=== PATIENT | female | born 1950 | race African-American/Black ===

== ENCOUNTER 2022-09-12 02:54 | Emergency (ER) | payer OTHER ==
[~2022-09-12] VITALS: Ht 165.1 cm; Wt 90.0 kg
[2022-09-12] MEDS ORDERED: MORPHINE SULFATE 4 MG/ML CPJ (NOT FOR IM USE) IV STA (04:08)
[2022-09-12] MEDS ORDERED: SODIUM CHLORIDE 0.9% 1,000 ML IV ONE (04:15)
[2022-09-12] MEDS ORDERED: DIATR MEGLU/DIATRIZOATE SOLN 30ML ONE (04:45)
[2022-09-12 05:05] LABS: BASOPHILS % 0.3 % (0.0-2.0); EOSINOPHILS % 0.5 % (0.0-5.0); HEMATOCRIT. 42.1 % (36.0-48.0); HEMOGLOBIN. 14.2 g/dL (12.0-16.0); LYMPHOCYTES % 7.5 % (20.0-50.0); MEAN CORPUSCULAR HEMOGLOBIN 30.6 pg (28.0-32.0); MEAN CORPUSCULAR VOLUME 90.2 fL (81.0-99.0); MEAN PLATELET VOLUME 8.5 fl (7.4-10.4); MONOCYTES % 5.3 % (2.0-8.0); NEUTROPHILS % 86.4 % (40.0-76.0); PLATELET 208 x1000/uL (130-400); RED BLOOD CELL COUNT 4.66 mill/uL (4.2-5.4); RED CELL DISTRIBUTION WIDTH 14.5 % (11.6-14.6)
[2022-09-12 05:38] LABS: CHLORIDE 109 mEq/L (98-107)
[2022-09-12] MEDS ORDERED: ONDANSETRON HCL 4MG/2ML INJ IV ONE (06:00)
[2022-09-12] MEDS ORDERED: FAMOTIDINE 20MG/2ML VIAL IV NR (06:45)
[2022-09-12] MEDS ORDERED: MAGNESIUM/ALUMINUM HYDROXIDE/SIMETHICONE 30ML UDC PO NR ×2 (06:45→10:30)
[2022-09-12] MEDS ORDERED: IOHEXOL-300 100 ML BOTTLE ONE (09:00)
[2022-09-12] MEDS ORDERED: VANCOMYCIN 1G PREMIX 200 ML IV SCH (09:30)
[2022-09-12] MEDS ORDERED: PIPERACILLIN/TAZOBACTAM 3.375GM/50ML PREMIX IV NR (09:30)
[2022-09-12 10:40] VITALS: BP 105/68
== END 2022-09-12 11:41 | disposition short-term general hospital (02) ==
LOC: ER 02:54
DX: R10.9 Unspecified abdominal pain (principal); R19.7 Diarrhea, unspecified; R11.2 Nausea with vomiting, unspecified; J45.909 Unspecified asthma, uncomplicated; K21.9 Gastro-esophageal reflux disease without esophagitis; E78.00 Pure hypercholesterolemia, unspecified; Z87.19 Personal history of other diseases of the digestive system
CPT/HCPCS: 36415; 74177; 80053; 83690; 85025; 96361; 96365; 96366; 96375; 99285; J2270; J2405; J2543; J3370; J3490; J7030; Q9963; Q9967